=== PATIENT | male | born 1965 | race Caucasian/White ===

== ENCOUNTER 2018-09-24 14:48 | Emergency (ER) | payer OTHER, MEDICAID, SELFPAY ==
[2018-09-24] VITALS (8 sets, daily range): BP systolic 119–150; BP diastolic 74–98; PULSE 43–67; RESP 14–24; TEMP 36.4; O2SAT 98–100; BMI 38.3
[2018-09-24] MEDS: SODIUM CHLORIDE 0.9% 1,000 ML 1000 ML IV (15:28)
--- NOTE | 2018-09-24 15:42 | ED.SYNCOPE ---
HPI - Syncope <Hina Benoit PA-C - Last Filed: 09/24/18 21:49> General Chief Complaint: Dizziness Stated Complaint: fainting spell at work Time Seen by Provider: 09/24/18 15:23 Source: patient Mode of arrival: ambulatory Limitations: no limitations History of Present Illness HPI narrative: This 53-year-old gentleman comes in due to a near syncopal episode at work. 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 He states he was bent over a car, stood up and felt a little bit lightheaded, then when he walked around the car he felt dizzy, which he describes as a ?warm feeling, like I was going to pass out, I knew I needed to get down?. He states that he did not pass out, but felt weak and shaky all over. He states this got somewhat better after being on the ground for a bit and having a small amount of water, but still felt dizzy for 2 or 3 hours, which is unusual for him. He denies any spinning sensation. He denies any focal weakness at all. He denies any difficulty with speech or swallowing. He denies any vision change. He denies any chest pain, dyspnea, new pain or swelling in the extremities. he did have some diarrhea a couple of days ago but this has resolved and he had a normal bowel movement today. He had his usual breakfast, but had only had some coffee to drink prior to this occurring. He states he has had some similar symptoms in the past but milder and usually resolve quickly when he sits down and has some juice or some soda, today was much more ?extreme?. His notes that when he called her, he was making sense and she did not notice any speech change other than him being somewhat slower to answer questions. He thinks this could be related to work due to the stressful nature of his job and was advised by his employer to fill out L and I paperwork Related Data Home Medications Medication Instructions Recorded Confirmed No Known Home Medications 09/24/18 09/24/18 Allergies Allergy/AdvReac Type Severity Reaction Status Date / Time No Known Drug Allergies Allergy Verified 09/24/18 15:16 Review of Systems <Hina Benoit PA-C - Last Filed: 09/24/18 21:49> Review of Systems ROS Unobtainable: All systems reviewed & are unremarkable except as noted in HPI and below PFSH <Hina Benoit PA-C - Last Filed: 09/24/18 21:49> Medical History (Updated 09/24/18 @ 18:26 by Hina Benoit PA-C) No known problems (Chronic) Surgical History (Updated 09/24/18 @ 15:46 by Hina Benoit PA-C) Status post ORIF of fracture of ankle (Chronic) Social History Smoking Status: Never smoker Social History Smoking Status: Never smoker Comment: No ETOH, rare THC Exam <Hina Benoit PA-C - Last Filed: 09/24/18 21:49> Narrative Exam Narrative: GENERAL APPEARANCE: Patient sitting comfortably, in no distress. HEENT: PERRL, EOMI, few beats of rotary nystagmus with head turned to left, normal TMs and oropharynx, no sinus TTP NECK: Supple, no masses LUNGS: Clear to auscultation bilaterally. HEART: Rate and rhythm regular without murmur, normal S1 and S2, no S3 or S4. ABDOMEN: Soft, NT, ND, + BS x 4 quadrants NEUROLOGIC: Alert and oriented, normal speech, gait and coordination. Mild symptoms elicited with Hallpike maneuver head turn to right. Negative head impulse and test of skew. Nystagmus does not change directions MUSCULOSKELETAL: Full Csp AROM Initial Vital Signs Initial Vital Signs: Vital Signs Temperature 97.5 F L 09/24/18 14:58 Pulse Rate 60 09/24/18 14:58 Respiratory Rate 19 09/24/18 14:58 Blood Pressure 134/86 09/24/18 14:58 Pulse Oximetry 99 09/24/18 14:58 <Lucien Aragon DO - Last Filed: 09/25/18 07:16> Initial Vital Signs Initial Vital Signs: Vital Signs Temperature 97.5 F L 09/24/18 14:58 Pulse Rate 60 09/24/18 14:58 Respiratory Rate 09/24/18 14:58 Blood Pressure 134/86 09/24/18 14:58 Pulse Oximetry 99 09/24/18 14:58 Course <ELVI Cantor Last Filed: 09/24/18 21:49> Additional Information: Patient is noted to have heart rates in the low to mid 40s when at rest. He felt weak and dizzy again for a couple of minutes where his said he was slow to answer her again, but did not pass out. Heart rate was 39 at that point noted by nursing. I spoke with Dr. Starks on-call for Cardiology regarding this. Patient has had sinus bradycardia. There was no ectopy on the rhythm strip when this occurred. He advised further workup with Holter monitor as an outpatient but did not think that this was urgent or admission was needed, and advised follow-up could be arranged as an outpatient. Patient is uninsured. Spoke with our social staff worker who has given him resource is and rochelle care paperwork, and he will call in the morning to get follow-up set up. I suggested follow up at [facility] if possible as their internal medicine providers may do Holter monitoring on site. Discussed that this is not clearly work related as he has had more mild episodes in the past. If this is noncardiac could be related to positional dizziness exacerbated by working quickly and stress and lack of fluids. Explained this may not qualify as an L&I claim, paperwork completed as advised by his employer. Findings reviewed with attending Dr. Aragon who agrees with above plan Orders Ordered: Discontinued Medications Sodium Chloride (Normal Saline 0.9%) 1,000 mls @ 1,000 mls/hr IV BOLUS ONE Stop: 09/24/18 16:26 Last Infusion: 09/24/18 16:38 Dose: 0 mls/hr Admin: 09/24/18 15:28 Dose: 1,000 mls/hr Vital Signs - 8 hr 09/24/18 14:58 09/24/18 15:00 09/24/18 15:39 Temperature 97.5 F L Pulse Rate 60 52 L 45 L Pulse Rate [Orthostatic Lying] Pulse Rate [Orthostatic Sitting] Pulse Rate [Orthostatic Standing] Respiratory Rate 19 14 20 Blood Pressure 134/86 Blood Pressure [Orthostatic Lying] Blood Pressure [Orthostatic Sitting] Blood Pressure [Orthostatic Standing] Blood Pressure [Right Arm] 129/98 H 150/89 H Pulse Oximetry 99 100 100 09/24/18 15:40 09/24/18 16:30 09/24/18 17:05 Temperature Pulse Rate 43 L 48 L Pulse Rate [Orthostatic Lying] 45 L Pulse Rate [Orthostatic Sitting] 67 Pulse Rate [Orthostatic Standing] 61 Respiratory Rate 18 19 Blood Pressure Blood Pressure [Orthostatic Lying] 131/76 Blood Pressure [Orthostatic Sitting] 129/98 H Blood Pressure [Orthostatic Standing] 150/86 H Blood Pressure [Right Arm] 126/79 119/74 Pulse Oximetry 100 98 09/24/18 17:30 09/24/18 18:02 Temperature Pulse Rate 54 L 52 L Pulse Rate [Orthostatic Lying] Pulse Rate [Orthostatic Sitting] Pulse Rate [Orthostatic Standing] Respiratory Rate 24 18 Blood Pressure Blood Pressure [Orthostatic Lying] Blood Pressure [Orthostatic Sitting] Blood Pressure [Orthostatic Standing] Blood Pressure [Right Arm] 122/81 137/76 Pulse Oximetry 99 98 <Lucien Aragon, DO - Last Filed: 09/25/18 07:16> Orders Ordered: Discontinued Medications Sodium Chloride (Normal Saline 0.9%) 1,000 mls @ 1,000 mls/hr IV BOLUS ONE Stop: 09/24/18 16:26 Last Infusion: 09/24/18 16:38 Dose: 0 mls/hr Admin: 09/24/18 15:28 Dose: 1,000 mls/hr Vital Signs - 8 hr 09/24/18 14:58 09/24/18 15:00 09/24/18 15:39 Temperature 97.5 F L Pulse Rate 60 52 L 45 L Pulse Rate [Orthostatic Lying] Pulse Rate [Orthostatic Sitting] Pulse Rate [Orthostatic Standing] Respiratory Rate 19 14 20 Blood Pressure 134/86 Blood Pressure [Orthostatic Lying] Blood Pressure [Orthostatic Sitting] Blood Pressure [Orthostatic Standing] Blood Pressure [Right Arm] 129/98 H 150/89 H Pulse Oximetry 99 100 100 09/24/18 15:40 09/24/18 16:30 09/24/18 17:05 Temperature Pulse Rate 43 L 48 L Pulse Rate [Orthostatic Lying] 45 L Pulse Rate [Orthostatic Sitting] 67 Pulse Rate [Orthostatic Standing] 61 Respiratory Rate 18 19 Blood Pressure Blood Pressure [Orthostatic Lying] 131/76 Blood Pressure [Orthostatic Sitting] 129/98 H Blood Pressure [Orthostatic Standing] 150/86 H Blood Pressure [Right Arm] 126/79 119/74 Pulse Oximetry 100 98 09/24/18 17:30 09/24/18 18:02 Temperature Pulse Rate 54 L 52 L Pulse Rate [Orthostatic Lying] Pulse Rate [Orthostatic Sitting] Pulse Rate [Orthostatic Standing] Respiratory Rate 24 18 Blood Pressure Blood Pressure [Orthostatic Lying] Blood Pressure [Orthostatic Sitting] Blood Pressure [Orthostatic Standing] Blood Pressure [Right Arm] 122/81 137/76 Pulse Oximetry 99 98 MDM - Syncope <Hina Benoit PA-C - Last Filed: 09/24/18 21:49> Lab Data Attestation: I reviewed the patient's lab results. Result diagrams: 09/24/18 15:10 09/24/18 15:10 Lab Results 09/24/18 09/24/18 09/24/18 Range/Units 15:10 15:10 16:50 WBC 9.3 (4.5-11.0) X10^3/uL RBC 4.36 L (4.5-5.9) X10^6/uL Hgb 13.8 (13.5-17.5) g/dL Hct 40.8 L (41-53) % MCV 93.7 (80-100) fL MCH 31.7 (26-34) PG MCHC 33.9 (30-36) % RDW 13.2 (11.6-14.8) % Plt Count 228 (150-400) X10^3/uL Neut % (Auto) 62.5 (50-75) % Lymph % (Auto) 27.9 (25-40) % [place] % (Auto) 5.2 (3-14) % Eos % (Auto) 3.6 (2-4) % Baso % (Auto) 0.8 (0-2) % Neut # (Auto) 5800 (1756-4666) /uL Lymph # (Auto) 2600 (5417-8969) /uL [place] # (Auto) 500 (0-900) /uL Eos # (Auto) 300 (0-450) /uL Baso # (Auto) 100 (0-100) /uL Sodium 139 (137-145) mmol/L Potassium 4.2 (3.4-5.1) mmol/L Chloride 104 (98-107) mmol/L Carbon Dioxide 26 (22-32) mmol/L BUN 15 (9-20) mg/dL Creatinine 0.80 (0.66-1.25) mg/dL Estimated GFR > 60.0 (>60) mL/min BUN/Creatinine Ratio 18.8 (6-22) Glucose 86 (70-100) mg/dL Calcium 9.4 (8.4-10.2) mg/dL Magnesium 1.8 (1.6-2.3) mg/dL Total Bilirubin 0.6 (0.2-1.3) mg/dL AST 32 (17-59) IU/L ALT 35 (21-72) IU/L Alkaline Phosphatase 37 L (38-126) U/L Total Protein 7.0 (6.3-8.2) g/dL Albumin 4.4 (3.5-5.0) g/dL Globulin 2.6 (1.7-4.1) g/dL Albumin/Globulin Ratio 1.7 (1.0-2.8) Prolactin 12.7 (3.7-17.9) ng/mL ECG Data Attestation: I personally reviewed and interpreted this ECG as follows: (Sinus bradycardia 57, normal axis, no ectopy, 1st degree AV block with FL interval 0.2) Prior ECG tracings: not available for review <Lucien Aragon DO - Last Filed: 09/25/18 07:16> Lab Data Lab Results 09/24/18 09/24/18 09/24/18 Range/Units 15:10 15:10 16:50 WBC 9.3 (4.5-11.0) X10^3/uL RBC 4.36 L (4.5-5.9) X10^6/uL Hgb 13.8 (13.5-17.5) g/dL Hct 40.8 L (41-53) % MCV 93.7 (80-100) fL MCH 31.7 (26-34) PG MCHC 33.9 (30-36) % RDW 13.2 (11.6-14.8) % Plt Count 228 (150-400) X10^3/uL Neut % (Auto) 62.5 (50-75) % Lymph % (Auto) 27.9 (25-40) % [place] % (Auto) 5.2 (3-14) % Eos % (Auto) 3.6 (2-4) % Baso % (Auto) 0.8 (0-2) % Neut # (Auto) 5800 (1440-3174) /uL Lymph # (Auto) 2600 (7749-8336) /uL [place] # (Auto) 500 (0-900) /uL Eos # (Auto) 300 (0-450) /uL Baso # (Auto) 100 (0-100) /uL Sodium 139 (137-145) mmol/L Potassium 4.2 (3.4-5.1) mmol/L Chloride 104 (98-107) mmol/L Carbon Dioxide 26 (22-32) mmol/L BUN 15 (9-20) mg/dL Creatinine 0.80 (0.66-1.25) mg/dL Estimated GFR > 60.0 (>60) mL/min BUN/Creatinine Ratio 18.8 (6-22) Glucose 86 (70-100) mg/dL Calcium 9.4 (8.4-10.2) mg/dL Magnesium 1.8 (1.6-2.3) mg/dL Total Bilirubin 0.6 (0.2-1.3) mg/dL AST 32 (17-59) IU/L ALT 35 (21-72) IU/L Alkaline Phosphatase 37 L (38-126) U/L Total Protein 7.0 (6.3-8.2) g/dL Albumin 4.4 (3.5-5.0) g/dL Globulin 2.6 (1.7-4.1) g/dL Albumin/Globulin Ratio 1.7 (1.0-2.8) Prolactin 12.7 (3.7-17.9) ng/mL Discharge Plan Departure Patient Disposition: Home Clinical Impression: Pre-syncope, Bradycardia Discharge Date/Time: 09/24/18 18:46 Interventions: ED Discharge Assessment Last Done: 09/24/18 18:46 Instructions: DI for Syncope in Adults (Fainting), DI for Bradycardia, DI for Dizziness-Nonvertigo Activity Restrictions/Additional Instructions: There was no specific cause found for you feeling dizzy and faint today. Your heart rate is lower than average/normal. It is unclear whether this is typical for you or whether it is related to your symptoms. as we talked about, it is very important that you have further testing. The manager customer service on-call that I spoke with recommended that you have a Holter monitor (a recording of your heart's electrical activity that is continuous, including while you sleep) done to take a closer look at this. He did not think you need to be in the hospital for this and it can be done as an outpatient. Please talk with the care coordinators and clinics that the social staff worker gave you 1st thing tomorrow to set up an appointment. If you're able to be seen at [facility] by 1 of the internal medicine providers they may be able to do the Holter monitor for you. As we discussed, you should return you have any acutely worsening symptoms again or lose consciousness, or new symptoms such as chest pain or trouble breathing. You should be careful to stay hydrated, and change positions slowly. If you feel dizzy or faint again, you should get down on the ground as you have before to avoid falling. Prescriptions: No Action No Known Home Medications RF: 0 Stand Alone Forms: Work Release Note <Lucien Aragon DO - Last Filed: 09/25/18 07:16> [facility] ED Attending Mamie Attestation: I was available for consultation during this patient's emergency department encounter
--- NOTE | 2018-09-24 15:48 | ED_ITS ---
HPI - Syncope <Hina Benoit PA-C - Last Filed: 09/24/18 21:49> General Chief Complaint: Dizziness Stated Complaint: fainting spell at work Time Seen by Provider: 09/24/18 15:23 Source: patient Mode of arrival: ambulatory Limitations: no limitations History of Present Illness HPI narrative: This 53-year-old gentleman comes in due to a near syncopal episode at work. 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 He states he was bent over a car, stood up and felt a little bit lightheaded, then when he walked around the car he felt dizzy, which he describes as a ?warm feeling, like I was going to pass out, I knew I needed to get down?. He states that he did not pass out, but felt weak and shaky all over. He states this got somewhat better after being on the ground for a bit and having a small amount of water, but still felt dizzy for 2 or 3 hours, which is unusual for him. He denies any spinning sensation. He denies any focal weakness at all. He denies any difficulty with speech or swallowing. He denies any vision change. He denies any chest pain, dyspnea, new pain or swelling in the extremities. he did have some diarrhea a couple of days ago but this has resolved and he had a normal bowel movement today. He had his usual breakfast, but had only had some coffee to drink prior to this occurring. He states he has had some similar symptoms in the past but milder and usually resolve quickly when he sits down and has some juice or some soda, today was much more ?extreme?. His notes that when he called her, he was making sense and she did not notice any speech change other than him being somewhat slower to answer questions. He thinks this could be related to work due to the stressful nature of his job and was advised by his employer to fill out L and I paperwork Related Data Home Medications Medication Instructions Recorded Confirmed No Known Home Medications 09/24/18 09/24/18 Allergies Allergy/AdvReac Type Severity Reaction Status Date / Time No Known Drug Allergies Allergy Verified 09/24/18 15:16 Review of Systems <Hina Benoit PA-C - Last Filed: 09/24/18 21:49> Review of Systems ROS Unobtainable: All systems reviewed & are unremarkable except as noted in HPI and below PFSH <Hina Benoit PA-C - Last Filed: 09/24/18 21:49> Medical History (Updated 09/24/18 @ 18:26 by Hina Benoit PA-C) No known problems (Chronic) Surgical History (Updated 09/24/18 @ 15:46 by Hina Benoit PA-C) Status post ORIF of fracture of ankle (Chronic) Social History Smoking Status: Never smoker Social History Smoking Status: Never smoker Comment: No ETOH, rare THC Exam <Hina Benoit PA-C - Last Filed: 09/24/18 21:49> Narrative Exam Narrative: GENERAL APPEARANCE: Patient sitting comfortably, in no distress. HEENT: PERRL, EOMI, few beats of rotary nystagmus with head turned to left, normal TMs and oropharynx, no sinus TTP NECK: Supple, no masses LUNGS: Clear to auscultation bilaterally. HEART: Rate and rhythm regular without murmur, normal S1 and S2, no S3 or S4. ABDOMEN: Soft, NT, ND, + BS x 4 quadrants NEUROLOGIC: Alert and oriented, normal speech, gait and coordination. Mild symptoms elicited with Hallpike maneuver head turn to right. Negative head impulse and test of skew. Nystagmus does not change directions MUSCULOSKELETAL: Full Csp AROM Initial Vital Signs Initial Vital Signs: Vital Signs Temperature 97.5 F L 09/24/18 14:58 Pulse Rate 60 09/24/18 14:58 Respiratory Rate 19 09/24/18 14:58 Blood Pressure 134/86 09/24/18 14:58 Pulse Oximetry 99 09/24/18 14:58 <Lucien Aragon DO - Last Filed: 09/25/18 07:16> Initial Vital Signs Initial Vital Signs: Vital Signs Temperature 97.5 F L 09/24/18 14:58 Pulse Rate 60 09/24/18 14:58 Respiratory Rate 09/24/18 14:58 Blood Pressure 134/86 09/24/18 14:58 Pulse Oximetry 99 09/24/18 14:58 Course <ELVI Cantor Last Filed: 09/24/18 21:49> Additional Information: Patient is noted to have heart rates in the low to mid 40s when at rest. He felt weak and dizzy again for a couple of minutes where his said he was slow to answer her again, but did not pass out. Heart rate was 39 at that point noted by nursing. I spoke with Dr. Starks on-call for Cardiology regarding this. Patient has had sinus bradycardia. There was no ectopy on the rhythm strip when this occurred. He advised further workup with Holter monitor as an outpatient but did not think that this was urgent or admission was needed, and advised follow-up could be arranged as an outpatient. Patient is uninsured. Spoke with our long term care social worker who has given him resource is and rochelle care paperwork, and he will call in the morning to get follow-up set up. I suggested follow up at [facility] if possible as their internal medicine providers may do Holter monitoring on site. Discussed that this is not clearly work related as he has had more mild episodes in the past. If this is noncardiac could be related to positional dizziness exacerbated by working quickly and stress and lack of fluids. Explained this may not qualify as an L&I claim, paperwork completed as advised by his employer. Findings reviewed with attending Dr. Aragon who agrees with above plan Orders Ordered: Discontinued Medications Sodium Chloride (Normal Saline 0.9%) 1,000 mls @ 1,000 mls/hr IV BOLUS ONE Stop: 09/24/18 16:26 Last Infusion: 09/24/18 16:38 Dose: 0 mls/hr Admin: 09/24/18 15:28 Dose: 1,000 mls/hr Vital Signs - 8 hr 09/24/18 14:58 09/24/18 15:00 09/24/18 15:39 Temperature 97.5 F L Pulse Rate 60 52 L 45 L Pulse Rate [Orthostatic Lying] Pulse Rate [Orthostatic Sitting] Pulse Rate [Orthostatic Standing] Respiratory Rate 19 14 20 Blood Pressure 134/86 Blood Pressure [Orthostatic Lying] Blood Pressure [Orthostatic Sitting] Blood Pressure [Orthostatic Standing] Blood Pressure [Right Arm] 129/98 H 150/89 H Pulse Oximetry 99 100 100 09/24/18 15:40 09/24/18 16:30 09/24/18 17:05 Temperature Pulse Rate 43 L 48 L Pulse Rate [Orthostatic Lying] 45 L Pulse Rate [Orthostatic Sitting] 67 Pulse Rate [Orthostatic Standing] 61 Respiratory Rate 18 19 Blood Pressure Blood Pressure [Orthostatic Lying] 131/76 Blood Pressure [Orthostatic Sitting] 129/98 H Blood Pressure [Orthostatic Standing] 150/86 H Blood Pressure [Right Arm] 126/79 119/74 Pulse Oximetry 100 98 09/24/18 17:30 09/24/18 18:02 Temperature Pulse Rate 54 L 52 L Pulse Rate [Orthostatic Lying] Pulse Rate [Orthostatic Sitting] Pulse Rate [Orthostatic Standing] Respiratory Rate 24 18 Blood Pressure Blood Pressure [Orthostatic Lying] Blood Pressure [Orthostatic Sitting] Blood Pressure [Orthostatic Standing] Blood Pressure [Right Arm] 122/81 137/76 Pulse Oximetry 99 98 <Lucien Aragon, DO - Last Filed: 09/25/18 07:16> Orders Ordered: Discontinued Medications Sodium Chloride (Normal Saline 0.9%) 1,000 mls @ 1,000 mls/hr IV BOLUS ONE Stop: 09/24/18 16:26 Last Infusion: 09/24/18 16:38 Dose: 0 mls/hr Admin: 09/24/18 15:28 Dose: 1,000 mls/hr Vital Signs - 8 hr 09/24/18 14:58 09/24/18 15:00 09/24/18 15:39 Temperature 97.5 F L Pulse Rate 60 52 L 45 L Pulse Rate [Orthostatic Lying] Pulse Rate [Orthostatic Sitting] Pulse Rate [Orthostatic Standing] Respiratory Rate 19 14 20 Blood Pressure 134/86 Blood Pressure [Orthostatic Lying] Blood Pressure [Orthostatic Sitting] Blood Pressure [Orthostatic Standing] Blood Pressure [Right Arm] 129/98 H 150/89 H Pulse Oximetry 99 100 100 09/24/18 15:40 09/24/18 16:30 09/24/18 17:05 Temperature Pulse Rate 43 L 48 L Pulse Rate [Orthostatic Lying] 45 L Pulse Rate [Orthostatic Sitting] 67 Pulse Rate [Orthostatic Standing] 61 Respiratory Rate 18 19 Blood Pressure Blood Pressure [Orthostatic Lying] 131/76 Blood Pressure [Orthostatic Sitting] 129/98 H Blood Pressure [Orthostatic Standing] 150/86 H Blood Pressure [Right Arm] 126/79 119/74 Pulse Oximetry 100 98 09/24/18 17:30 09/24/18 18:02 Temperature Pulse Rate 54 L 52 L Pulse Rate [Orthostatic Lying] Pulse Rate [Orthostatic Sitting] Pulse Rate [Orthostatic Standing] Respiratory Rate 24 18 Blood Pressure Blood Pressure [Orthostatic Lying] Blood Pressure [Orthostatic Sitting] Blood Pressure [Orthostatic Standing] Blood Pressure [Right Arm] 122/81 137/76 Pulse Oximetry 99 98 MDM - Syncope <Hina Benoit PA-C - Last Filed: 09/24/18 21:49> Lab Data Attestation: I reviewed the patient's lab results. Result diagrams: 09/24/18 15:10 09/24/18 15:10 Lab Results 09/24/18 09/24/18 09/24/18 Range/Units 15:10 15:10 16:50 WBC 9.3 (4.5-11.0) X10^3/uL RBC 4.36 L (4.5-5.9) X10^6/uL Hgb 13.8 (13.5-17.5) g/dL Hct 40.8 L (41-53) % MCV 93.7 (80-100) fL MCH 31.7 (26-34) PG MCHC 33.9 (30-36) % RDW 13.2 (11.6-14.8) % Plt Count 228 (150-400) X10^3/uL Neut % (Auto) 62.5 (50-75) % Lymph % (Auto) 27.9 (25-40) % Harlan % (Auto) 5.2 (3-14) % Eos % (Auto) 3.6 (2-4) % Baso % (Auto) 0.8 (0-2) % Neut # (Auto) 5800 (5420-2235) /uL Lymph # (Auto) 2600 (3953-6105) /uL Harlan # (Auto) 500 (0-900) /uL Eos # (Auto) 300 (0-450) /uL Baso # (Auto) 100 (0-100) /uL Sodium 139 (137-145) mmol/L Potassium 4.2 (3.4-5.1) mmol/L Chloride 104 (98-107) mmol/L Carbon Dioxide 26 (22-32) mmol/L BUN 15 (9-20) mg/dL Creatinine 0.80 (0.66-1.25) mg/dL Estimated GFR > 60.0 (>60) mL/min BUN/Creatinine Ratio 18.8 (6-22) Glucose 86 (70-100) mg/dL Calcium 9.4 (8.4-10.2) mg/dL Magnesium 1.8 (1.6-2.3) mg/dL Total Bilirubin 0.6 (0.2-1.3) mg/dL AST 32 (17-59) IU/L ALT 35 (21-72) IU/L Alkaline Phosphatase 37 L (38-126) U/L Total Protein 7.0 (6.3-8.2) g/dL Albumin 4.4 (3.5-5.0) g/dL Globulin 2.6 (1.7-4.1) g/dL Albumin/Globulin Ratio 1.7 (1.0-2.8) Prolactin 12.7 (3.7-17.9) ng/mL ECG Data Attestation: I personally reviewed and interpreted this ECG as follows: (Sinus bradycardia 57, normal axis, no ectopy, 1st degree AV block with SD interval 0.2) Prior ECG tracings: not available for review <Lucien Aragon DO - Last Filed: 09/25/18 07:16> Lab Data Lab Results 09/24/18 09/24/18 09/24/18 Range/Units 15:10 15:10 16:50 WBC 9.3 (4.5-11.0) X10^3/uL RBC 4.36 L (4.5-5.9) X10^6/uL Hgb 13.8 (13.5-17.5) g/dL Hct 40.8 L (41-53) % MCV 93.7 (80-100) fL MCH 31.7 (26-34) PG MCHC 33.9 (30-36) % RDW 13.2 (11.6-14.8) % Plt Count 228 (150-400) X10^3/uL Neut % (Auto) 62.5 (50-75) % Lymph % (Auto) 27.9 (25-40) % Harlan % (Auto) 5.2 (3-14) % Eos % (Auto) 3.6 (2-4) % Baso % (Auto) 0.8 (0-2) % Neut # (Auto) 5800 (1541-3438) /uL Lymph # (Auto) 2600 (4577-4173) /uL Harlan # (Auto) 500 (0-900) /uL Eos # (Auto) 300 (0-450) /uL Baso # (Auto) 100 (0-100) /uL Sodium 139 (137-145) mmol/L Potassium 4.2 (3.4-5.1) mmol/L Chloride 104 (98-107) mmol/L Carbon Dioxide 26 (22-32) mmol/L BUN 15 (9-20) mg/dL Creatinine 0.80 (0.66-1.25) mg/dL Estimated GFR > 60.0 (>60) mL/min BUN/Creatinine Ratio 18.8 (6-22) Glucose 86 (70-100) mg/dL Calcium 9.4 (8.4-10.2) mg/dL Magnesium 1.8 (1.6-2.3) mg/dL Total Bilirubin 0.6 (0.2-1.3) mg/dL AST 32 (17-59) IU/L ALT 35 (21-72) IU/L Alkaline Phosphatase 37 L (38-126) U/L Total Protein 7.0 (6.3-8.2) g/dL Albumin 4.4 (3.5-5.0) g/dL Globulin 2.6 (1.7-4.1) g/dL Albumin/Globulin Ratio 1.7 (1.0-2.8) Prolactin 12.7 (3.7-17.9) ng/mL Discharge Plan Departure Patient Disposition: Home Clinical Impression: Pre-syncope, Bradycardia Discharge Date/Time: 09/24/18 18:46 Interventions: ED Discharge Assessment Last Done: 09/24/18 18:46 Instructions: DI for Syncope in Adults (Fainting), DI for Bradycardia, DI for Dizziness-Nonvertigo Activity Restrictions/Additional Instructions: There was no specific cause found for you feeling dizzy and faint today. Your heart rate is lower than average/normal. It is unclear whether this is typical for you or whether it is related to your symptoms. as we talked about, it is very important that you have further testing. The senior systems programmer on-call that I spoke with recommended that you have a Holter monitor (a recording of your heart's electrical activity that is continuous, including while you sleep) done to take a closer look at this. He did not think you need to be in the hospital for this and it can be done as an outpatient. Please talk with the care coordinators and clinics that the long term care social worker gave you 1st thing tomorrow to set up an appointment. If you're able to be seen at [facility] by 1 of the internal medicine providers they may be able to do the Holter monitor for you. As we discussed, you should return you have any acutely worsening symptoms again or lose consciousness, or new symptoms such as chest pain or trouble breathing. You should be careful to stay hydrated, and change positions slowly. If you feel dizzy or faint again, you should get down on the ground as you have before to avoid falling. Prescriptions: No Action No Known Home Medications RF: 0 Stand Alone Forms: Work Release Note <Lucien Aragon DO - Last Filed: 09/25/18 07:16> Dany ED Attending Mamie Attestation: I was available for consultation during this patient's emergency department encounter
[2018-09-24 15:52] LABS: Add Manual Diff / Slide Review NO; Basophils Absolute Auto 100 /uL (0-100); Basophils Percent Auto 0.8 % (0-2); Eosinophils Absolute Auto 300 /uL (0-450); Eosinophils Percent Auto 3.6 % (2-4); Hematocrit 40.8 % (41-53); Hemoglobin 13.8 g/dL (13.5-17.5); Lymphocytes Absolute Auto 2600 /uL (1100-4500); Lymphocytes Percent Auto 27.9 % (25-40); Mean Corpuscular HGB Conc 33.9 % (30-36); Mean Corpuscular Hemoglobin 31.7 PG (26-34); Mean Corpuscular Volume 93.7 fL (80-100); Monocytes Absolute Auto 500 /uL (0-900); Monocytes Percent Auto 5.2 % (3-14); Neutrophils Absolute Auto 5800 /uL (1500-7000); Neutrophils Percent Auto 62.5 % (50-75); Platelet Count 228 X10^3/uL (150-400); Red Blood Cell Count 4.36 X10^6/uL (4.5-5.9); Red Cell Distribution Width 13.2 % (11.6-14.8); White Blood Cell Count 9.3 X10^3/uL (4.5-11.0)
[2018-09-24 15:57] LABS: Alanine Aminotransferase 35 IU/L (21-72); Albumin 4.4 g/dL (3.5-5.0); Albumin Globulin Ratio 1.7 (1.0-2.8); Alkaline Phosphatase 37 U/L (38-126); Aspartate Aminotransferase 32 IU/L (17-59); BUN Creatinine Ratio 18.8 (6-22); Bilirubin Total 0.6 mg/dL (0.2-1.3); Blood Urea Nitrogen 15 mg/dL (9-20); Calcium 9.4 mg/dL (8.4-10.2); Carbon Dioxide 26 mmol/L (22-32); Chloride 104 mmol/L (98-107); Estimated Glomerular Filt Rate > 60.0 mL/min (>60); Globulin 2.6 g/dL (1.7-4.1); Glucose 86 mg/dL (70-100); HEMOLYSIS 30 (0-50); Magnesium 1.8 mg/dL (1.6-2.3); Potassium 4.2 mmol/L (3.4-5.1); Sodium 139 mmol/L (137-145)
--- NOTE | 2018-09-24 16:34 | PC.NURSE ---
Spouse came to get me. Patient was feeling lightheaded. When I entered the room, HR 39. Pt alert and talking. spouse states he had a spell when he stated he felt lightheaded and then he did not respond to for 2 minutes. Pt states he remembers the whole thing, just felt funny. Provider notified. Called lab for draw for new orders.
--- NOTE | 2018-09-24 17:33 | CM.SWNOTE ---
CLINICAL LAB CLERK consult per ED Provider Request Description: Insurance Resources Activity: CLINICAL LAB CLERK met with pt and his spouse to offer assistance/resources for insurance coverage. Pt presents in the ED today for complaints of dizziness. It was determined that he had a very low heart rate, and is being referred to primary care for further cardiac evaluation and work-up. He has no insurance, no primary care provider at this time. Pt states that he was paying several hundred dollars per month for commercial insurance through his employer, and had a $5600 yearly deductible, both factors in which he and his determined that they could no longer afford insurance. Unfortunately, they make over the poverty guidline to qualify for Medicaid, and it's not currently open enrollment for the [employer]. CLINICAL LAB CLERK offered pt an [facility] application, as well as discussed how to find a primary care provider with openings in [place]. Encouraged pt to consider saving money to enroll in the [employer] next fall, and to consider that this may be a warning sign of things to come, medically, that will only continue to be more and more expensive. He expressed understanding and will plan to obtain insurance coverage when open enrollment is available again. He does not meet any of the criteria for a qualifying condition in order to enroll outside of the open enrollment period.
[2018-09-24 17:48] LABS: Prolactin 12.7 ng/mL (3.7-17.9)
== END 2018-09-24 18:46 | disposition home or self-care (01) ==
PROVIDERS: Emergency Provider Internal Medicine
DX: R55 Syncope and collapse (principal); R00.1 Bradycardia, unspecified; Y99.0 Civilian activity done for income or pay
CPT/HCPCS: 36591; 80053; 83735; 84146; 85025; 93005; 93010; 96360; 99283; 99284

== ENCOUNTER 2018-09-26 16:17 | Emergency (ER) | payer OTHER, MEDICAID, SELFPAY ==
[2018-09-26] VITALS (8 sets, daily range): BP systolic 124–148; BP diastolic 78–90; PULSE 44–55; RESP 11–18; TEMP 36.7; O2SAT 98–100; BMI 38.3
[2018-09-26 17:13] LABS: Add Manual Diff / Slide Review NO; Basophils Absolute Auto 100 /uL (0-100); Eosinophils Absolute Auto 500 /uL (0-450); Eosinophils Percent Auto 6.5 % (2-4); Hematocrit 41.4 % (41-53); Hemoglobin 14.2 g/dL (13.5-17.5); Lymphocytes Absolute Auto 2800 /uL (1100-4500); Mean Corpuscular HGB Conc 34.3 % (30-36); Mean Corpuscular Hemoglobin 32.1 PG (26-34); Mean Corpuscular Volume 93.5 fL (80-100); Monocytes Absolute Auto 500 /uL (0-900); Monocytes Percent Auto 5.7 % (3-14); Neutrophils Absolute Auto 4400 /uL (1500-7000); Neutrophils Percent Auto 52.8 % (50-75); Platelet Count 229 X10^3/uL (150-400); Red Blood Cell Count 4.42 X10^6/uL (4.5-5.9); Red Cell Distribution Width 13.5 % (11.6-14.8); White Blood Cell Count 8.2 X10^3/uL (4.5-11.0)
[2018-09-26 17:17] LABS: BUN Creatinine Ratio 16.3 (6-22); Blood Urea Nitrogen 13 mg/dL (9-20); Calcium 9.1 mg/dL (8.4-10.2); Carbon Dioxide 26 mmol/L (22-32); Chloride 106 mmol/L (98-107); Estimated Glomerular Filt Rate > 60.0 mL/min (>60); Glucose 90 mg/dL (70-100); HEMOLYSIS 27 (0-50); Potassium 4.1 mmol/L (3.4-5.1); Sodium 139 mmol/L (137-145)
--- NOTE | 2018-09-26 18:04 | DI.CT.S_ITS ---
PROCEDURE: CT HEAD/BRAIN WO CON INDICATIONS: right sided numbness TECHNIQUE: Noncontrast 4.5 mm thick angled axial sections acquired from the foramen magnum to the vertex, with coronal and sagittal reformats. For radiation dose reduction, the following was used: automated exposure control, adjustment of mA and/or kV according to patient size. COMPARISON: [facility], CR, XR CHEST 1V, 09/26/2018, 18:16. FINDINGS: Image quality: Excellent. CSF spaces: Basal cisterns are patent. No extra-axial fluid collections. Ventricles are normal in size and shape. Brain: No midline shift. No intracranial masses or hemorrhage. Ruiz-white matter interface is normal. Skull and face: Calvarium and visualized facial bones are intact, without suspicious lesions. Sinuses: Moderate mucosal thickening can be seen within the air cells and the left sphenoid sinus. No abnormal fluid is seen within the mastoid air cells or within the middle ear cavities. IMPRESSION: No acute intracranial process is seen. If there is strong clinical suspicion for an acute stroke, please consider an MRI for further evaluation, as it is more sensitive (assuming that there is no contraindication to MRI). Dictated by: Jason Wagoner M.D. on 09/26/2018 at 17:26 Approved by: Jason Wagoner M.D. on 09/26/2018 at 17:27
--- NOTE | 2018-09-26 18:09 | DI.RAD.S_ITS ---
PROCEDURE: XR CHEST 1V INDICATIONS: near syncope TECHNIQUE: One view of the chest was acquired. COMPARISON: [facility], CT, CT HEAD/BRAIN WO CON, 09/26/2018, 18:15. FINDINGS: Surgical changes and devices: None. Lungs and pleura: Lungs are clear. No pleural effusions or pneumothorax. Mediastinum: The cardiac contours are within normal limits. The aorta demonstrates calcification and tortuosity. Bones and chest wall: No suspicious bony lesions. Overlying soft tissues appear unremarkable. IMPRESSION: Portable chest within normal limits. Dictated by: Jason Wagoner M.D. on 09/26/2018 at 17:25 Approved by: Jason Wagoner M.D. on 09/26/2018 at 17:26
[2018-09-26 18:20] LABS: Troponin I < 0.012 ng/mL (0.01-0.034)
[2018-09-26 18:27] LABS: Creatine Kinase 112 U/L (55-170); Magnesium 1.9 mg/dL (1.6-2.3); Phosphorous 3.6 mg/dL (2.5-4.5)
--- NOTE | 2018-09-26 18:30 | PC.NURSE ---
HR down to 38bpm, Maksim aware, cardiac pacer pads at bedside.
[2018-09-26 18:42] LABS: CKMB % Relative Index 0.8 % (1.5-5.0); Creatine Kinase MB 0.87 ng/mL (<2.37)
[2018-09-26] MEDS: SODIUM CHLORIDE 0.9% 1,000 ML 1000 ML IV (18:48)
--- NOTE | 2018-09-26 18:50 | ED.DIZZY ---
HPI - Dizziness <INGRID Longo - Last Filed: 09/26/18 21:01> General Chief Complaint: Dizziness Stated Complaint: light headed and weak, numb on right and headache Time Seen by Provider: 09/26/18 17:30 Source: patient and family Mode of arrival: ambulatory Limitations: no limitations History of Present Illness HPI Narrative: The patient is a 53-year-old male with history of presyncope and bradycardia who presents with a chief complaint of lightheadedness and dizziness. He was seen here 2 days ago for the same thing, and instructed to follow up as an outpatient. He states today he feels weak and lightheaded and dizzy. He states he had some transient tingling in the right side of his face. He denies any fevers has a vomiting or diarrhea. He denies taking medication every day. He denies any previous health problems. He does not smoke. He does have history of an ORIF of his ankle. He denies any chest pain or shortness of breath. Related Data Home Medications Medication Instructions Recorded Confirmed No Known Home Medications 09/24/18 09/26/18 Allergies Allergy/AdvReac Type Severity Reaction Status Date / Time No Known Drug Allergies Allergy Verified 09/24/18 15:16 Review of Systems <INGRID Longo - Last Filed: 09/26/18 21:01> Review of Systems GENERAL: Denies chills, fatigue, malaise, fever, sweats. HEENT: Denies sinus pain, ear pain, sore throat, difficulty swallowing, dizziness. RESPIRATORY: Denies dyspnea, cough, wheezing, hemoptysis, sputum. CARDIOVASCULAR: See HPI GASTROINTESTINAL: Denies nausea, vomiting, abdominal pain, diarrhea, constipation, melena. : Denies dysuria, frequency, incontinence, hematuria, urinary retention. MUSCULOSKELETAL: denies weakness, joint pain, or bony pain SKIN: Denies rash, skin lesions, or other NEUROLOGIC: D see HPI PSYCHIATRIC: No concerning psychosocial issues. 12 point review of systems is negative except for those stated above PFSH <INGRID Longo - Last Filed: 09/26/18 21:01> Medical History No known problems (Chronic) Surgical History (Updated 09/24/18 @ 15:46 by Hina Benoit PA-C) Status post ORIF of fracture of ankle (Chronic) Social History Smoking Status: Never smoker Social History Smoking Status: Never smoker Exam <INGRID Longo - Last Filed: 09/26/18 21:01> Narrative Exam Narrative: GENERAL: This is a well-nourished, well-developed patient, in no acute distress HEAD: Atraumatic. Normocephalic. No temporal or scalp tenderness. EYES: Pupils equal round and reactive. Extraocular motions intact. No scleral icterus. No injection or drainage. ENT: Nose without bleeding, purulent drainage or septal hematoma. Throat without erythema, tonsillar hypertrophy or exudate. Uvula midline. Airway patent. NECK: Trachea midline. No JVD or lymphadenopathy. Supple, nontender, no meningeal signs. CARDIOVASCULAR: Bradycardic rate and regular rhythm without murmurs, gallops, or rubs. RESPIRATORY: Clear to auscultation. Breath sounds equal bilaterally. No wheezes, rales, or rhonchi. No cough. No increased respiratory effort. GASTROINTESTINAL: Abdomen soft, non-tender, nondistended. No hepato-splenomegaly, or palpable masses. No guarding. EXTREMITIES: No clubbing, cyanosis, or edema. No joint tenderness, effusion, or edema noted. BACK: Nontender without deformity or crepitance. No flank tenderness. NEURO: AOx3. SKIN: No rash or erythema. Initial Vital Signs Initial Vital Signs: Vital Signs Temperature 98.0 F 09/26/18 16:33 Pulse Rate 55 L 09/26/18 16:33 Respiratory Rate 18 09/26/18 16:33 Blood Pressure 148/85 H 09/26/18 16:33 Pulse Oximetry 100 09/26/18 16:33 <Zofia Motta DO - Last Filed: 09/28/18 03:15> Initial Vital Signs Initial Vital Signs: Vital Signs Temperature 98.0 F 09/26/18 16:33 Pulse Rate 55 L 09/26/18 16:33 Respiratory Rate 18 09/26/18 16:33 Blood Pressure 148/85 H 04/10/19 16:33 Pulse Oximetry 100 09/26/18 16:33 Course <LEIGH ANN Longo-BC - Last Filed: 09/26/18 21:01> Orders Ordered: Discontinued Medications Sodium Chloride (Normal Saline 0.9%) 1,000 mls @ 150 mls/hr IV CONT DANIELLE Last Infusion: 09/26/18 20:53 Dose: 0 mls/hr Admin: 09/26/18 20:32 Dose: 24 mls/hr Sodium Chloride (Normal Saline 0.9%) 1,000 mls @ 1,000 mls/hr IV BOLUS ONE Stop: 09/26/18 19:00 Last Infusion: 09/26/18 20:31 Dose: 0 mls/hr Admin: 09/26/18 18:48 Dose: 1,000 mls/hr Vital Signs - 8 hr 09/26/18 16:33 09/26/18 17:35 09/26/18 17:45 Temperature 98.0 F Pulse Rate 55 L 48 L 48 L Respiratory Rate 18 11 L 11 L Blood Pressure 148/85 H Blood Pressure [Right Arm] 127/90 127/90 Pulse Oximetry 100 99 99 09/26/18 18:00 09/26/18 18:45 09/26/18 19:00 Temperature Pulse Rate 44 L 53 L 44 L Respiratory Rate 14 18 15 Blood Pressure Blood Pressure [Right Arm] 124/80 143/86 H 136/90 Pulse Oximetry 99 99 100 09/26/18 20:00 Temperature Pulse Rate 46 L Respiratory Rate 14 Blood Pressure Blood Pressure [Right Arm] 137/84 Pulse Oximetry 100 <Zofia Motta DO - Last Filed: 09/28/18 03:15> Orders Ordered: Discontinued Medications Sodium Chloride (Normal Saline 0.9%) 1,000 mls @ 150 mls/hr IV CONT DANIELLE Last Infusion: 09/26/18 20:53 Dose: 0 mls/hr Admin: 09/26/18 20:32 Dose: 24 mls/hr Sodium Chloride (Normal Saline 0.9%) 1,000 mls @ 1,000 mls/hr IV BOLUS ONE Stop: 09/26/18 19:00 Last Infusion: 09/26/18 20:31 Dose: 0 mls/hr Admin: 09/26/18 18:48 Dose: 1,000 mls/hr Vital Signs - 8 hr 09/26/18 16:33 09/26/18 17:35 09/26/18 17:45 Temperature 98.0 F Pulse Rate 55 L 48 L 48 L Respiratory Rate 18 11 L 11 L Blood Pressure 148/85 H Blood Pressure [Right Arm] 127/90 127/90 Pulse Oximetry 100 99 99 09/26/18 18:00 09/26/18 18:45 09/26/18 19:00 Temperature Pulse Rate 44 L 53 L 44 L Respiratory Rate 14 18 15 Blood Pressure Blood Pressure [Right Arm] 124/80 143/86 H 136/90 Pulse Oximetry 99 99 100 09/26/18 20:00 Temperature Pulse Rate 46 L Respiratory Rate 14 Blood Pressure Blood Pressure [Right Arm] 137/84 Pulse Oximetry 100 MDM - Dizziness <LEIGH ANN Longo- - Last Filed: 09/26/18 21:01> Lab Data Result diagrams: 09/26/18 16:59 09/26/18 16:59 Lab Results 09/26/18 09/26/18 09/26/18 Range/Units 16:54 16:59 16:59 WBC 8.2 (4.5-11.0) X10^3/uL RBC 4.42 L (4.5-5.9) X10^6/uL Hgb 14.2 (13.5-17.5) g/dL Hct 41.4 (41-53) % MCV 93.5 (80-100) fL MCH 32.1 (26-34) PG MCHC 34.3 (30-36) % RDW 13.5 (11.6-14.8) % Plt Count 229 (150-400) X10^3/uL Neut % (Auto) 52.8 (50-75) % Lymph % (Auto) 34.0 (25-40) % [place] % (Auto) 5.7 (3-14) % Eos % (Auto) 6.5 H (2-4) % Baso % (Auto) 1.0 (0-2) % Neut # (Auto) 4400 (2667-7025) /uL Lymph # (Auto) 2800 (0798-6070) /uL [place] # (Auto) 500 (0-900) /uL Eos # (Auto) 500 H (0-450) /uL Baso # (Auto) 100 (0-100) /uL Sodium 139 (137-145) mmol/L Potassium 4.1 (3.4-5.1) mmol/L Chloride 106 (98-107) mmol/L Carbon Dioxide 26 (22-32) mmol/L BUN 13 (9-20) mg/dL Creatinine 0.80 (0.66-1.25) mg/dL Estimated GFR > 60.0 (>60) mL/min BUN/Creatinine Ratio 16.3 (6-22) Glucose 90 (70-100) mg/dL Calcium 9.1 (8.4-10.2) mg/dL Phosphorus 3.6 (2.5-4.5) mg/dL Magnesium 1.9 (1.6-2.3) mg/dL Total Creatine Kinase 112 (55-170) U/L CK-MB (CK-2) 0.87 (<2.37) ng/mL CK-MB (CK-2) Rel Index 0.8 L (1.5-5.0) % Troponin I < 0.012 Cancelled (0.01-0.034) ng/mL Imaging Data Chest x-ray: Radiologist's impression: Alcon Moses 53 M 1965 [place] [address] XRay Report Signed Patient: Alcon Moses [facility]#: [id number] : 1965Acct:[id number] Age/Sex: 53 / MDate of Service: 09/26/18 Loc: ED Accession Number: [id number] Procedure: XR chest 1V Ordering Provider: Anne Schaeffer PROCEDURE: XR CHEST 1V INDICATIONS: near syncope TECHNIQUE: One view of the chest was acquired. COMPARISON: [facility], CT, CT HEAD/BRAIN WO CON, 09/26/2018, 18:15. FINDINGS: Surgical changes and devices: None. Lungs and pleura: Lungs are clear. No pleural effusions or pneumothorax. Mediastinum: The cardiac contours are within normal limits. The aorta demonstrates calcification and tortuosity. Bones and chest wall: No suspicious bony lesions. Overlying soft tissues appear unremarkable. IMPRESSION: Portable chest within normal limits. Dictated by: Jason Wagoner M.D. on 09/26/2018 at 17:25 Approved by: Jason Wagoner M.D. on 09/26/2018 at 17:26 CT scan - head: Radiologist's impression: [address] [address] [address] Scan Report Signed Patient: Alcon Moses [facility]#: [id number] : 1965Acct:[id number] Age/Sex: 53 / MDate of Service: 09/26/18 Loc: ED Accession Number: [id number] Procedure: CT head/brain wo con Ordering Provider: nAne Schaeffer- PROCEDURE: CT HEAD/BRAIN WO CON INDICATIONS: right sided numbness TECHNIQUE: Noncontrast 4.5 mm thick angled axial sections acquired from the foramen magnum to the vertex, with coronal and sagittal reformats. For radiation dose reduction, the following was used: automated exposure control, adjustment of mA and/or kV according to patient size. COMPARISON: [facility], CR, XR CHEST 1V, 09/26/2018, 18:16. FINDINGS: Image quality: Excellent. CSF spaces: Basal cisterns are patent. No extra-axial fluid collections. Ventricles are normal in size and shape. Brain: No midline shift. No intracranial masses or hemorrhage. Ruiz-white matter interface is normal. Skull and face: Calvarium and visualized facial bones are intact, without suspicious lesions. Sinuses: Moderate mucosal thickening can be seen within the air cells and the left sphenoid sinus. No abnormal fluid is seen within the mastoid air cells or within the middle ear cavities. IMPRESSION: No acute intracranial process is seen. If there is strong clinical suspicion for an acute stroke, please consider an MRI for further evaluation, as it is more sensitive (assuming that there is no contraindication to MRI). Dictated by: Jason Wagoner M.D. on 09/26/2018 at 17:26 Approved by: Jason Wagoner M.D. on 09/26/2018 at 17:27 ECG Data Attestation: I personally reviewed and interpreted this ECG as follows: Interpretation: Bradycardic 49. No ectopy. No ST elevation or depression.CT 193 MDM Narrative Medical decision making narrative: The patient is a 53-year-old male who presents with chief complaint of lightheadedness and dizziness. I obtained a CT given his complaints of transient tingling. On monitor he was noted to be sinus bradycardic down to a heart rate of 37. I spoke with Dr. Tran from [facility], who recommended the patient be transferred for a pacemaker. The patient was afebrile, had normal electrolytes and a negative troponin. He had a normal head CT as well as a normal chest x-ray. I also spoke with the hospitalist at [facility], Dr. Gilbert who kindly accepted the patient. The patient remained on surveillance system monitor, attached to d fib pads with atropine at his bedside. He was transferred to ambulance care at 9:00 p.m.. He remained GCS 15, alert and oriented throughout his stay in the emergency department. He remained on telemetry, with a heart rate dipping down to 36 sinus. <Zofia Motta, DO - Last Filed: 09/28/18 03:15> Lab Data Attestation: I reviewed the patient's lab results. Lab Results 09/26/18 09/26/18 09/26/18 Range/Units 16:54 16:59 16:59 WBC 8.2 (4.5-11.0) X10^3/uL RBC 4.42 L (4.5-5.9) X10^6/uL Hgb 14.2 (13.5-17.5) g/dL Hct 41.4 (41-53) % MCV 93.5 (80-100) fL MCH 32.1 (26-34) PG MCHC 34.3 (30-36) % RDW 13.5 (11.6-14.8) % Plt Count 229 (150-400) X10^3/uL Neut % (Auto) 52.8 (50-75) % Lymph % (Auto) 34.0 (25-40) % [place] % (Auto) 5.7 (3-14) % Eos % (Auto) 6.5 H (2-4) % Baso % (Auto) 1.0 (0-2) % Neut # (Auto) 4400 (1730-1110) /uL Lymph # (Auto) 2800 (0879-5515) /uL [place] # (Auto) 500 (0-900) /uL Eos # (Auto) 500 H (0-450) /uL Baso # (Auto) 100 (0-100) /uL Sodium 139 (137-145) mmol/L Potassium 4.1 (3.4-5.1) mmol/L Chloride 106 (98-107) mmol/L Carbon Dioxide 26 (22-32) mmol/L BUN 13 (9-20) mg/dL Creatinine 0.80 (0.66-1.25) mg/dL Estimated GFR > 60.0 (>60) mL/min BUN/Creatinine Ratio 16.3 (6-22) Glucose 90 (70-100) mg/dL Calcium 9.1 (8.4-10.2) mg/dL Phosphorus 3.6 (2.5-4.5) mg/dL Magnesium 1.9 (1.6-2.3) mg/dL Total Creatine Kinase 112 (55-170) U/L CK-MB (CK-2) 0.87 (<2.37) ng/mL CK-MB (CK-2) Rel Index 0.8 L (1.5-5.0) % Troponin I < 0.012 Cancelled (0.01-0.034) ng/mL ECG Data Attestation: I personally reviewed and interpreted this ECG as follows: Prior ECG tracings: available for review Interpretation: Sinus rhythm rate 49 CT interval 193 QRS 134 QTC 378 regular no AV block appreciated similar to previous EKG Discharge Plan Departure Patient Disposition: [facility] Clinical Impression: Bradycardia Discharge Date/Time: 09/26/18 21:03 Interventions: ED Discharge Assessment Last Done: 09/26/18 21:01 Prescriptions: No Action No Known Home Medications RF: 0 <Zofia Motta DO - Last Filed: 09/28/18 03:15> Cosign ED Attending Mamie Attestation: I was immediately available in the department for consultation. Documentation has been reviewed. I agree with assessment and plan.
--- NOTE | 2018-09-26 18:55 | ED_ITS ---
HPI - Dizziness <INGRID Longo - Last Filed: 09/26/18 21:01> General Chief Complaint: Dizziness Stated Complaint: light headed and weak, numb on right and headache Time Seen by Provider: 09/26/18 17:30 Source: patient and family Mode of arrival: ambulatory Limitations: no limitations History of Present Illness HPI Narrative: The patient is a 53-year-old male with history of presyncope and bradycardia who presents with a chief complaint of lightheadedness and dizziness. He was seen here 2 days ago for the same thing, and instructed to follow up as an outpatient. He states today he feels weak and lightheaded and dizzy. He states he had some transient tingling in the right side of his face. He denies any fevers has a vomiting or diarrhea. He denies taking medication every day. He denies any previous health problems. He does not smoke. He does have history of an ORIF of his ankle. He denies any chest pain or shortness of breath. Related Data Home Medications Medication Instructions Recorded Confirmed No Known Home Medications 09/24/18 09/26/18 Allergies Allergy/AdvReac Type Severity Reaction Status Date / Time No Known Drug Allergies Allergy Verified 09/24/18 15:16 Review of Systems <INGRID Longo - Last Filed: 09/26/18 21:01> Review of Systems GENERAL: Denies chills, fatigue, malaise, fever, sweats. HEENT: Denies sinus pain, ear pain, sore throat, difficulty swallowing, dizziness. RESPIRATORY: Denies dyspnea, cough, wheezing, hemoptysis, sputum. CARDIOVASCULAR: See HPI GASTROINTESTINAL: Denies nausea, vomiting, abdominal pain, diarrhea, const ipation, melena. : Denies dysuria, frequency, incontinence, hematuria, urinary retention. MUSCULOSKELETAL: denies weakness, joint pain, or bony pain SKIN: Denies rash, skin lesions, or other NEUROLOGIC: D see HPI PSYCHIATRIC: No concerning psychosocial issues. 12 point review of systems is negative except for those stated above PFSH <INGRID Longo - Last Filed: 09/26/18 21:01> Medical History No known problems (Chronic) Surgical History (Updated 09/24/18 @ 15:46 by Hina Benoit PA-C) Status post ORIF of fracture of ankle (Chronic) Social History Smoking Status: Never smoker Social History Smoking Status: Never smoker Exam <INGRID Longo - Last Filed: 09/26/18 21:01> Narrative Exam Narrative: GENERAL: This is a well-nourished, well-developed patient, in no acute distress HEAD: Atraumatic. Normocephalic. No temporal or scalp tenderness. EYES: Pupils equal round and reactive. Extraocular motions intact. No scleral icterus. No injection or drainage. ENT: Nose without bleeding, purulent drainage or septal hematoma. Throat without erythema, tonsillar hypertrophy or exudate. Uvula midline. Airway patent. NECK: Trachea midline. No JVD or lymphadenopathy. Supple, nontender, no meningeal signs. CARDIOVASCULAR: Bradycardic rate and regular rhythm without murmurs, gallops, or rubs. RESPIRATORY: Clear to auscultation. Breath sounds equal bilaterally. No wheezes, rales, or rhonchi. No cough. No increased respiratory effort. GASTROINTESTINAL: Abdomen soft, non-tender, nondistended. No hepato-sple nomegaly, or palpable masses. No guarding. EXTREMITIES: No clubbing, cyanosis, or edema. No joint tenderness, effusion, or edema noted. BACK: Nontender without deformity or crepitance. No flank tenderness. NEURO: AOx3. SKIN: No rash or erythema. Initial Vital Signs Initial Vital Signs: Vital Signs Temperature 98.0 F 09/26/18 16:33 Pulse Rate 55 L 09/26/18 16:33 Respiratory Rate 18 09/26/18 16:33 Blood Pressure 148/85 H 09/26/18 16:33 Pulse Oximetry 100 09/26/18 16:33 <Zofia Motta DO - Last Filed: 09/28/18 03:15> Initial Vital Signs Initial Vital Signs: Vital Signs Temperature 98.0 F 09/26/18 16:33 Pulse Rate 55 L 09/26/18 16:33 Respiratory Rate 18 09/26/18 16:33 Blood Pressure 148/85 H 09/26/18 16:33 Pulse Oximetry 100 09/26/18 16:33 Course <LEIGH ANN Longo-BC - Last Filed: 09/26/18 21:01> Orders Ordered: Discontinued Medications Sodium Chloride (Normal Saline 0.9%) 1,000 mls @ 150 mls/hr IV CONT DANIELLE Last Infusion: 09/26/18 20:53 Dose: 0 mls/hr Admin: 09/26/18 20:32 Dose: 24 mls/hr Sodium Chloride (Normal Saline 0.9%) 1,000 mls @ 1,000 mls/hr IV BOLUS ONE Stop: 09/26/18 19:00 Last Infusion: 09/26/18 20:31 Dose: 0 mls/hr Admin: 09/26/18 18:48 Dose: 1,000 mls/hr Vital Signs - 8 hr 09/26/18 16:33 09/26/18 17:35 09/26/18 17:45 Temperature 98.0 F Pulse Rate 55 L 48 L 48 L Respiratory Rate 18 11 L 11 L Blood Pressure 148/85 H Blood Pressure [Right Arm] 127/90 127/90 Pulse Oximetry 100 99 99 09/26/18 18:00 09/26/18 18:45 09/26/18 19:00 Temperature Pulse Rate 44 L 53 L 44 L Respiratory Rate 14 18 15 Blood Pressure Blood Pressure [Right Arm] 124/80 143/86 H 136/90 Pulse Oximetry 99 99 100 09/26/18 20:00 Temperature Pulse Rate 46 L Respiratory Rate 14 Blood Pressure Blood Pressure [Right Arm] 137/84 Pulse Oximetry 100 <Zofia Motta DO - Last Filed: 09/28/18 03:15> Orders Ordered: Discontinued Medications Sodium Chloride (Normal Saline 0.9%) 1,000 mls @ 150 mls/hr IV CONT DANIELLE Last Infusion: 09/26/18 20:53 Dose: 0 mls/hr Admin: 09/26/18 20:32 Dose: 24 mls/hr Sodium Chloride (Normal Saline 0.9%) 1,000 mls @ 1,000 mls/hr IV BOLUS ONE Stop: 09/26/18 19:00 Last Infusion: 09/26/18 20:31 Dose: 0 mls/hr Admin: 09/26/18 18:48 Dose: 1,000 mls/hr Vital Signs - 8 hr 09/26/18 16:33 09/26/18 17:35 09/26/18 17:45 Temperature 98.0 F Pulse Rate 55 L 48 L 48 L Respiratory Rate 18 11 L 11 L Blood Pressure 148/85 H Blood Pressure [Right Arm] 127/90 127/90 Pulse Oximetry 100 99 99 09/26/18 18:00 09/26/18 18:45 09/26/18 19:00 Temperature Pulse Rate 44 L 53 L 44 L Respiratory Rate 14 18 15 Blood Pressure Blood Pressure [Right Arm] 124/80 143/86 H 136/90 Pulse Oximetry 99 99 100 09/26/18 20:00 Temperature Pulse Rate 46 L Respiratory Rate 14 Blood Pressure Blood Pressure [Right Arm] 137/84 Pulse Oximetry 100 MDM - Dizziness <LEIGH ANN Longo-BC - Last Filed: 09/26/18 21:01> Lab Data Result diagrams: 09/26/18 16:59 09/26/18 16:59 Lab Results 09/26/18 09/26/18 09/26/18 Range/Units 16:54 16:59 16:59 WBC 8.2 (4.5-11.0) X10^3/uL RBC 4.42 L (4.5-5.9) X10^6/uL Hgb 14.2 (13.5-17.5) g/dL Hct 41.4 (41-53) % MCV 93.5 (80-100) fL MCH 32.1 (26-34) PG MCHC 34.3 (30-36) % RDW 13.5 (11.6-14.8) % Plt Count 229 (150-400) X10^3/uL Neut % (Auto) 52.8 (50-75) % Lymph % (Auto) 34.0 (25-40) % [place] % (Auto) 5.7 (3-14) % Eos % (Auto) 6.5 H (2-4) % Baso % (Auto) 1.0 (0-2) % Neut # (Auto) 4400 (4889-9907) /uL Lymph # (Auto) 2800 (2797-1409) /uL [place] # (Auto) 500 (0-900) /uL Eos # (Auto) 500 H (0-450) /uL Baso # (Auto) 100 (0-100) /uL Sodium 139 (137-145) mmol/L Potassium 4.1 (3.4-5.1) mmol/L Chloride 106 (98-107) mmol/L Carbon Dioxide 26 (22-32) mmol/L BUN 13 (9-20) mg/dL Creatinine 0.80 (0.66-1.25) mg/dL Estimated GFR > 60.0 (>60) mL/min BUN/Creatinine Ratio 16.3 (6-22) Glucose 90 (70-100) mg/dL Calcium 9.1 (8.4-10.2) mg/dL Phosphorus 3.6 (2.5-4.5) mg/dL Magnesium 1.9 (1.6-2.3) mg/dL Total Creatine Kinase 112 (55-170) U/L CK-MB (CK-2) 0.87 (<2.37) ng/mL CK-MB (CK-2) Rel Index 0.8 L (1.5-5.0) % Troponin I < 0.012 Cancelled (0.01-0.034) ng/mL Imaging Data Chest x-ray: Radiologist's impression: Alcon Moses 53 M 1965 [place] [address] XRay Report Signed Patient: Alcon Moses [facility]#: [id number] : 1965Acct:[id number] Age/Sex: 53 / MDate of Service: 09/26/18 Loc: ED Accession Number: [id number] Procedure: XR chest 1V [facility]: XR CHEST 1V INDICATIONS: near syncope TECHNIQUE: One view of the chest was acquired. COMPARISON: [facility], CT, CT HEAD/BRAIN WO CON, 09/26/2018, 18:15. FINDINGS: Surgical changes and devices: None. Lungs and pleura: Lungs are clear. No pleural effusions or pneumothorax. Mediastinum: The cardiac contours are within normal limits. The aorta demonstrates calcification and tortuosity. Bones and chest wall: No suspicious bony lesions. Overlying soft tissues appear unremarkable. IMPRESSION: Portable chest within normal limits. Dictated by: Jason Wagoner M.D. on 09/26/2018 at 17:25 Approved by: Jason Wagoner M.D. on 09/26/2018 at 17:26 CT scan - head: Radiologist's impression: [address] [address] [address] Scan Report Signed Patient: Alcon Moses [facility]#: [id number] : 1965Acct:[id number] Age/Sex: 53 / MDate of Service: 09/26/18 Loc: ED Accession Number: [id number] Procedure: CT head/brain wo con Ordering Provider: Anne Schaeffer- PROCEDURE: CT HEAD/BRAIN WO CON INDICATIONS: right sided numbness TECHNIQUE: Noncontrast 4.5 mm thick angled axial sections acquired from the foramen magnum to the vertex, with coronal and sagittal reformats. For radiation dose reduction, the following was used: automated exposure control, adjustment of mA and/or kV according to patient size. COMPARISON: [facility], CR, XR CHEST 1V, 09/26/2018, 18:16. FINDINGS: Image quality: Excellent. CSF spaces: Basal cisterns are patent. No extra-axial fluid collections. Ventricles are normal in size and shape. Brain: No midline shift. No intracranial masses or hemorrhage. Ruiz-white matter interface is normal. Skull and face: Calvarium and visualized facial bones are intact, without suspicious lesions. Sinuses: Moderate mucosal thickening can be seen within the air cells and the left sphenoid sinus. No abnormal fluid is seen within the mastoid air cells or within the middle ear cavities. IMPRESSION: No acute intracranial process is seen. If there is strong clinical suspicion for an acute stroke, please consider an MRI for further evaluation, as it is more sensitive (assuming that there is no contraindication to MRI). Dictated by: Jason Wagoner M.D. on 09/26/2018 at 17:26 Approved by: Jason Wagoner M.D. on 09/26/2018 at 17:27 ECG Data Attestation: I personally reviewed and interpreted this ECG as follows: Interpretation: Bradycardic 49. No ectopy. No ST elevation or depression.MD 193 MDM Narrative Medical decision making narrative: The patient is a 53-year-old male who presents with chief complaint of lightheadedness and dizziness. I obtained a CT given his complaints of transient tingling. On monitor he was noted to be sinus bradycardic down to a heart rate of 37. I spoke with Dr. Tran from [facility], who recommended the patient be transferred for a pacemaker. The patient was afebrile, had normal electrolytes and a negative troponin. He had a normal head CT as well as a normal chest x-ray. I also spoke with the hospitalist at [facility], Dr. Gilbert who kindly accepted the patient. The patient remained on poultryman, attached to d fib pads with atropine at his bedside. He was transferred to ambulance care at 9:00 p.m.. He remained GCS 15, alert and oriented throughout his stay in the emergency department. He remained on telemetry, with a heart rate dipping down to 36 sinus. <Zofia Motta, DO - Last Filed: 09/28/18 03:15> Lab Data Attestation: I reviewed the patient's lab results. Lab Results 09/26/18 09/26/18 09/26/18 Range/Units 16:54 16:59 16:59 WBC 8.2 (4.5-11.0) X10^3/uL RBC 4.42 L (4.5-5.9) X10^6/uL Hgb 14.2 (13.5-17.5) g/dL Hct 41.4 (41-53) % MCV 93.5 (80-100) fL MCH 32.1 (26-34) PG MCHC 34.3 (30-36) % RDW 13.5 (11.6-14.8) % Plt Count 229 (150-400) X10^3/uL Neut % (Auto) 52.8 (50-75) % Lymph % (Auto) 34.0 (25-40) % [place] % (Auto) 5.7 (3-14) % Eos % (Auto) 6.5 H (2-4) % Baso % (Auto) 1.0 (0-2) % Neut # (Auto) 4400 (5421-3924) /uL Lymph # (Auto) 2800 (4699-2709) /uL [place] # (Auto) 500 (0-900) /uL Eos # (Auto) 500 H (0-450) /uL Baso # (Auto) 100 (0-100) /uL Sodium 139 (137-145) mmol/L Potassium 4.1 (3.4-5.1) mmol/L Chloride 106 (98-107) mmol/L Carbon Dioxide 26 (22-32) mmol/L BUN 13 (9-20) mg/dL Creatinine 0.80 (0.66-1.25) mg/dL Estimated GFR > 60.0 (>60) mL/min BUN/Creatinine Ratio 16.3 (6-22) Glucose 90 (70-100) mg/dL Calcium 9.1 (8.4-10.2) mg/dL Phosphorus 3.6 (2.5-4.5) mg/dL Magnesium 1.9 (1.6-2.3) mg/dL Total Creatine Kinase 112 (55-170) U/L CK-MB (CK-2) 0.87 (<2.37) ng/mL CK-MB (CK-2) Rel Index 0.8 L (1.5-5.0) % Troponin I < 0.012 Cancelled (0.01-0.034) ng/mL ECG Data Attestation: I personally reviewed and interpreted this ECG as follows: Prior ECG tracings: available for review Interpretation: Sinus rhythm rate 49 MD interval 193 QRS 134 QTC 378 regular no AV block appreciated similar to previous EKG Discharge Plan Departure Patient Disposition: [facility] Clinical Impression: Bradycardia Discharge Date/Time: 09/26/18 21:03 Interventions: ED Discharge Assessment Last Done: 09/26/18 21:01 Prescriptions: No Action No Known Home Medications RF: 0 <Zofia Motta DO - Last Filed: 09/28/18 03:15> Cosign ED Attending Mamie Attestation: I was immediately available in the department for consultation. Documentation has been reviewed. I agree with assessment and plan.
[2018-09-26] MEDS: SODIUM CHLORIDE 0.9% 1,000 ML 24 ML IV (20:32)
--- NOTE | 2018-09-26 20:32 | PC.NURSE ---
provider notified of fluids complete, verbal order for tko rate on second liter.
--- NOTE | 2018-09-26 20:53 | PC.NURSE ---
NS to continue on transport
== END 2018-09-26 21:03 | disposition short-term general hospital (02) ==
PROVIDERS: Emergency Medicine; Emergency Provider Nurse Practitioner Family
DX: R00.1 Bradycardia, unspecified (principal); R42 Dizziness and giddiness; R53.1 Weakness; Y99.0 Civilian activity done for income or pay
CPT/HCPCS: 36415; 70450; 71045; 80048; 82550; 82553; 83735; 84100; 84484; 85025; 93005; 93010; 96360; 96361; 99284; 99285